=== PATIENT | male | born 1955 | race African-American/Black ===

== ENCOUNTER 2019-07-27 14:02 | Inpatient (IN) ==
[2019-07-27] MEDS ORDERED: TORADOL 30 MG VIAL IVP ONE (15:26)
--- NOTE | 2019-07-27 15:37 | DR.ABDMALE ---
HPI Time seen Time Seen by Provider: 07/27/19 15:29 PCP Primary Care Physician: DR BEE Complaint Chief Complaint Doctors Comments: A 64 y/o male c/o 3 weeks of upper abdominal pain described as sharp in nature. It is not radiating and worsens with meals. He has no nausea or vomiting. He has seen his PCP last Thursday and she thought it may be Pancreatitis. The pain worsened in the past 2 days. Chief Complaint:: PT C/O TWO WEEKS OF CONSTANT SHARP STABBING EPIGASTRIC PAIN THAT HAS WORSENED OVER PAST TWO DAYS. PAIN IS ASSOCITAED WITH NAUSEA BUT NO VOMITING. PAIN IS WORSENED WITH EATING. Reviewed Nurses Notes Review: Yes Mode of arrival Mode of Arrival: Ambulatory Timing Onset of Chief Complaint: 07/27/19 Came on: Gradually Duration Duration: Intermittent How lon Duration: Weeks Location Location: RUQ and Epigastric Severity Severity: Mild and Moderate Quality Quality: Sharp Context Onset: Gradually History of: None Modifying factors Worsening Factors: Food Improving Factors: Nothing Associated signs and symptoms Associated Signs and Symptoms: None PMH PMH Past Medical History: Yes Past Medical History: Arthritis, Coronary Artery Disease, Dyslipidemia, Hypertension and Renal Disease Past Surgical History: Yes Surgical History: CABG/Valve Surgery and Ortho Surgery Family History History of Family Medical Conditions: Yes Family Medical History: Diabetes Mellitus, Cancer, [place] and Coronary Artery Disease Social History Does patient currently use any type of tobacco product: No Have you used tobacco products in the last 12 months: No Type of Tobacco Use: None Does any household member use tobacco: No Alcohol Use: None Do you use any recreational Drugs:: No Lives With: Alone Lives Where: Home infectious screening In the last 2 months have you had wt loss of >10#?: NO Have you had fever, night sweats or hemotysis?: No Have you traveled outside the country in the last 6 months?: No Isolation: Standard ROS Review of Systems Constitutional: No Symptoms Reported Eyes: No Symptoms Reported ENTM: No Symptoms Reported Respiratoy: No Symptoms Reported Cardiovascular: No Symptoms Reported Gastrointestinal/Abdominal: Abdominal Pain (epigastric pain) Genitourinary: No Symptoms Reported Neurological: No Symptoms Reported Musculoskeletal: No Symptoms Reported Integumentary: No Symptoms Reported Hematologic/Lymphatic: No Symptoms Reported Psychiatric: No Symptoms Reported PE Vital Signs Vital Signs: Temp Pulse Resp BP BP Pulse Ox 07/27/19 17:28 20 100 07/27/19 17:17 20 07/27/19 16:48 20 07/27/19 14:05 97.9 F 112 H 20 140/97 96 07/03/19 23:24 123/82 123/82 General Limitations: No Limitations General Appearance: Alert and In No Apparent Distress Head Head Exam: Normal Inspection, Atraumatic and Normocephalic Eyes Eye exam: Normal Appearance and EOMI ENT ENT Exam: Normal Exam, Normal Oropharynx and Mucous Membranes Moist Neck Neck Exam: Normal Inspection, Full ROM and Trachea Midline Chest Chest Inspection: Normal Inspection and Symmetric Chest Wall Rise Respiratory Respiratory Exam: Normal Lung Sounds Bilat Cardiovascular Cardiovascular Exam: Regular Rate, Normal Rhythm, Normal Heart Sounds, +S1 and +S2 Abdominal Exam Abdominal Exam: Normal Inspection, Normal Bowel Sounds and Soft Rectal Rectal Exam: Deferred Back Back Exam: Normal Inspection and Full ROM Extremeties Extremities Exam: Normal Inspection and Full ROM Exam: Male: Deferred Neurologic Neurological Exam: Alert and Oriented X3 Psychiatric Psychiatric Exam: Normal Affect and Normal Mood Skin Skin Exam: Dry and Normal Color MDM Differential Diagnosis Differential Diagnosis: Cholcystitis, Cholelethiasis, Esophagitis, Gastritus/PUD, Hernia and Pancreatitis COURSE Reevaluation 1st: Improved Education/Counseling Education/Counseling: Patient, Family, Education and Counseling Educated On: Treatment, Diagnosis, Prognosis and Needs for Follow Up ROR Labs Reviewed Result Diagrams: 07/27/19 15:34 07/27/19 15:34 Laboratory: WBC 10.6 X10^3/uL (3.6-10.0) H 07/27/19 15:34 RBC 5.49 X10^6/uL (4.7-6.0) 07/27/19 15:34 Hgb 17.4 g/dL (13.5-18.0) 07/27/19 15:34 Hct 53.4 % (42.0-54.0) 07/27/19 15:34 MCV 97.3 fL (80.0-100.0) 07/27/19 15:34 MCH 31.8 pg (27.0-34.0) 07/27/19 15:34 MCHC 32.7 g/dL (33.0-35.0) L 07/27/19 15:34 RDW 14.0 % (11.6-16.5) 07/27/19 15:34 Plt Count 197 X10^3/uL (150.0-450.0) 07/27/19 15:34 MPV 10.4 fL (7.4-11.0) 07/27/19 15:34 Neut % (Auto) 88.0 % (42.0-75.0) H 07/27/19 15:34 Lymph % (Auto) 5.7 % (21.0-51.0) L 07/27/19 15:34 [place] % (Auto) 5.6 % (0.0-13.0) 07/27/19 15:34 Eos % (Auto) 0.1 % (0.9-2.9) L 07/27/19 15:34 Baso % (Auto) 0.6 % (0.2-1.0) 07/27/19 15:34 Neut # (Auto) 9.3 x10^3/uL (2.2-4.8) H 07/27/19 15:34 Lymph # (Auto) 0.6 X10^3/uL (1.3-2.9) L 07/27/19 15:34 [place] # (Auto) 0.6 x10^3/uL (0.3-0.8) 07/27/19 15:34 Eos # (Auto) 0.0 x10^3/uL (0.0-0.2) 07/27/19 15:34 Baso # (Auto) 0.1 X10^3/uL (0.0-0.1) 07/27/19 15:34 Absolute Nucleated RBC 0.0 /100WBC 07/27/19 15:34 Sodium 126 mmol/L (136-145) L 07/27/19 15:34 Corrected Sodium 144 mmol/L (136-145) 07/27/19 15:34 Potassium 6.0 mmol/L (3.5-5.1) H* 07/27/19 15:34 Chloride 87 mmol/L (98-107) L 07/27/19 15:34 Carbon Dioxide 21.5 mmol/L (21-32) 07/27/19 15:34 BUN 46 mg/dL (7-18) H 07/27/19 15:34 Creatinine 3.00 mg/dL (0.70-1.30) H 07/27/19 15:34 Est GFR (MDRD) Af Amer 27 (>60) L 07/27/19 15:34 Est GFR (MDRD) Non-Af 23 (>60) L 07/27/19 15:34 Glucose 854 mg/dL (65-99) H* 07/27/19 15:34 Hemoglobin A1c 9.8 % 07/27/19 15:34 Calcium 10.1 mg/dL (8.5-10.1) 07/27/19 15:34 Corrected Calcium TNP 07/27/19 15:34 Total Bilirubin 0.70 mg/dL (0.2-1.0) 07/27/19 15:34 AST 30 Units/L (15-37) 07/27/19 15:34 ALT 36 Units/L (12-78) 07/27/19 15:34 Alkaline Phosphatase 254 Units/L (46-116) H 07/27/19 15:34 Total Protein 9.1 g/dL (6.4-8.2) H 07/27/19 15:34 Albumin 4.3 g/dL (3.4-5.0) 07/27/19 15:34 Globulin 4.8 g/dL (2.5-4.5) H 07/27/19 15:34 Albumin/Globulin Ratio 0.9 Ratio (1.1-2.1) L 07/27/19 15:34 Amylase 476 Units/L (25-115) H 07/27/19 15:34 Lipase 8589 Units/L (73-393) H 07/27/19 15:34 Urine Acetone Small (NEGATIVE) 07/27/19 17:16 Other Results Comments: CT Abd./Pelvis w/o: Acute pancreatitis. Severe fatty infiltration of an enlarged liver. sigmoid diverticulosis. Opioid Opioid Risk Tool Total: 0 Total Score Risk Category: Low Risk Copyright: Ta CHAVEZ predicting aberrant behaviors Diagnosis Discharge Problem: Acute hyperkalemia, Acute hyponatremia, CKD (chronic kidney disease) stage 4, GFR 15-29 ml/min Acute pancreatitis Qualifiers: Pancreatitis type: other Acute pancreatitis complication: no infection or necrosis Qualified Code(s): K85.80 - Other acute pancreatitis without necrosis or infection Diabetes type 1, uncontrolled Qualifiers: Glycemic state: with hyperglycemia Qualified Code(s): E10.65 - Type 1 diabetes mellitus with hyperglycemia
[2019-07-27 15:42] LABS: BASOPHILS # (AUTO) 0.1 X10^3/uL (0.0-0.1); BASOPHILS % (AUTO) 0.6 % (0.2-1.0); EOSINOPHILS % (AUTO) 0.1 % (0.9-2.9); HEMATOCRIT 53.4 % (42.0-54.0); HEMOGLOBIN 17.4 g/dL (13.5-18.0); LYMPHOCYTES # (AUTO) 0.6 X10^3/uL (1.3-2.9); LYMPHOCYTES % (AUTO) 5.7 % (21.0-51.0); MEAN CORPUSCULAR HEMOGLOBIN 31.8 pg (27.0-34.0); MEAN CORPUSCULAR HGB CONC 32.7 g/dL (33.0-35.0); MEAN CORPUSCULAR VOLUME 97.3 fL (80.0-100.0); MEAN PLATELET VOLUME 10.4 fL (7.4-11.0); MONOCYTES # (AUTO) 0.6 x10^3/uL (0.3-0.8); MONOCYTES % (AUTO) 5.6 % (0.0-13.0); NEUTROPHILS # (AUTO) 9.3 x10^3/uL (2.2-4.8); PLATELET COUNT 197 X10^3/uL (150.0-450.0); RED BLOOD COUNT 5.49 X10^6/uL (4.7-6.0); WHITE BLOOD COUNT 10.6 X10^3/uL (3.6-10.0)
[2019-07-27 15:53] LABS: BLOOD UREA NITROGEN 46 mg/dL (7-18); CALCIUM 10.1 mg/dL (8.5-10.1); CARBON DIOXIDE 21.5 mmol/L (21-32); CHLORIDE 87 mmol/L (98-107); SODIUM 126 mmol/L (136-145); eGFR NON BLACK RACES 23 (>60)
[2019-07-27 15:56] LABS: ALANINE AMINOTRANSFERASE 36 Units/L (12-78); ALBUMIN 4.3 g/dL (3.4-5.0); ALKALINE PHOSPHATASE 254 Units/L (46-116); AMYLASE 476 Units/L (25-115); ASPARTATE AMINO TRANSFERASE 30 Units/L (15-37); TOTAL PROTEIN 9.1 g/dL (6.4-8.2)
[2019-07-27 16:12] LABS: COR NA(FOR HYPERGLY) 144 mmol/L (136-145)
[2019-07-27] MEDS ORDERED: KAYEXALATE SUSP PO ONE (16:16)
[2019-07-27] MEDS ORDERED: NS 1000 ML 1,000 ML IV ONE (16:16)
[2019-07-27] MEDS ORDERED: HumuLIN R IV ONE (16:21)
[2019-07-27] MEDS ORDERED: SODIUM BICARBONATE 8.4% INJ ADULT IVP ONE (16:23)
[2019-07-27] MEDS ORDERED: SODIUM BICARBONATE 8.4% INJ ADULT ONE (16:27)
[2019-07-27] MEDS ORDERED: NS 1000 ML 1,000 ML ONE (16:27)
[2019-07-27 16:28] LABS: LIPASE 8589 Units/L (73-393)
[2019-07-27] MEDS ORDERED: HumuLIN R ONE (16:29)
--- NOTE | 2019-07-27 16:32 | RAD ---
History: Abdominal pain Study: Acute abdominal series Comparison: April 02, 2015 Findings: There is unchanged cardiomegaly status post CABG. The lungs are clear. There is no edema or effusion. The bowel gas pattern is within normal limits. There is a partially visualized right hip prosthesis. There is no free air or fluid level. There are severe degenerative osteophytes about the lumbar spine disc spaces. Impression: Unchanged cardiomegaly 2. No acute disease in the abdomen demonstrated. Reported By:
--- NOTE | 2019-07-27 16:41 | CT ---
History: Abdominal pain Study: CT abdomen and pelvis without contrast. Sagittal and coronal reformations were provided. Dose reduction techniques were utilized. Comparison: April 03, 2015 Findings: There is severe fatty infiltration of the liver and the right lobe measures over 21 cm in length. There is no focal liver mass. The spleen spleen and adrenal glands and kidneys are unremarkable. The head and uncinate process of the pancreas is enlarged and there are stranding of adjacent fat planes and thickening of the anterior right renal fascia. There is no fluid collection. The pancreatic duct is not distended. The gallbladder is unremarkable. There is no biliary dilatation demonstrated. There is no bowel distention or site. There is a small fat containing umbilical hernia. There is no aneurysm or adenopathy evident. There is sigmoid diverticulosis without inflammation. There is artifact from a right hip prosthesis. There are degenerative changes in the lower lumbar spine. Impression: 1. Acute pancreatitis of the uncinate process of the pancreas and head of the pancreas 2. Severe fatty infiltration of an enlarged liver 3. Sigmoid diverticulosis Reported By:
[2019-07-27] MEDS ORDERED: LEVSIN/MAALOX/LIDOC VISC PO ONE (16:47)
[2019-07-27] MEDS ORDERED: LEVSIN/MAALOX/LIDOC VISC ONE (16:47)
[2019-07-27] MEDS ORDERED: DILAUDID INJ IVP ONE (17:13)
[2019-07-27] MEDS ORDERED: DILAUDID INJ ONE (17:14)
[2019-07-27] MEDS ORDERED: PHENERGAN INJ 25 MG IM PRN (18:01)
[2019-07-27] MEDS: NS 1000 ML 1,000 ML IV SCH (19:29)
[2019-07-27] MEDS ORDERED: NexIUM PO SCH (20:00)
[2019-07-27] MEDS: LOPRESSOR TAB 25 MG PO SCH (20:53)
[2019-07-27] MEDS: HYTRIN PO SCH (20:53)
[2019-07-27] MEDS: LIPITOR TAB 40 MG PO SCH (20:53)
[2019-07-27] MEDS: REQUIP PO SCH (20:54)
[2019-07-27] MEDS: KLONOPIN TAB 0.5 MG PO PRN (20:54)
[2019-07-27] MEDS: NORVASC TAB 10 MG PO SCH (20:54)
[2019-07-27 21:16] LABS: CALCIUM 9.1 mg/dL (8.5-10.1); CARBON DIOXIDE 21.1 mmol/L (21-32); CREATININE 2.66 mg/dL (0.70-1.30)
[2019-07-27] MEDS: HumuLIN R SC PRN (21:30)
[2019-07-28] MEDS: DILAUDID INJ IVP PRN ×4 (01:23→20:29)
[2019-07-28] MEDS: NS 1000 ML 1,000 ML IV SCH ×5 (01:29→20:30)
[2019-07-28] MEDS: HumuLIN R SC PRN ×2 (02:07→08:24)
[2019-07-28 06:08] LABS: BASOPHILS % (AUTO) 0.3 % (0.2-1.0); EOSINOPHILS % (AUTO) 0.3 % (0.9-2.9); HEMATOCRIT 50.8 % (42.0-54.0); HEMOGLOBIN 16.9 g/dL (13.5-18.0); LYMPHOCYTES # (AUTO) 0.8 X10^3/uL (1.3-2.9); LYMPHOCYTES % (AUTO) 6.8 % (21.0-51.0); MEAN CORPUSCULAR HEMOGLOBIN 31.4 pg (27.0-34.0); MEAN CORPUSCULAR HGB CONC 33.3 g/dL (33.0-35.0); MEAN CORPUSCULAR VOLUME 94.4 fL (80.0-100.0); MEAN PLATELET VOLUME 10.7 fL (7.4-11.0); MONOCYTES # (AUTO) 0.9 x10^3/uL (0.3-0.8); MONOCYTES % (AUTO) 7.8 % (0.0-13.0); NEUTROPHILS # (AUTO) 9.4 x10^3/uL (2.2-4.8); NEUTROPHILS % (AUTO) 84.8 % (42.0-75.0); PLATELET COUNT 182 X10^3/uL (150.0-450.0); RED BLOOD COUNT 5.38 X10^6/uL (4.7-6.0); RED CELL DISTRIBUTION WIDTH 13.7 % (11.6-16.5); WHITE BLOOD COUNT 11.1 X10^3/uL (3.6-10.0)
[2019-07-28 07:09] LABS: ALBUMIN 3.5 g/dL (3.4-5.0); TOTAL PROTEIN 7.7 g/dL (6.4-8.2)
[2019-07-28 07:16] LABS: CHLORIDE 101 mmol/L (98-107)
[2019-07-28 07:57] LABS: BLOOD UREA NITROGEN 43 mg/dL (7-18); CARBON DIOXIDE 21.9 mmol/L (21-32); COR NA(FOR HYPERGLY) 146 mmol/L (136-145); CREATININE 2.39 mg/dL (0.70-1.30); SODIUM 136 mmol/L (136-145); eGFR NON BLACK RACES 29 (>60)
[2019-07-28 07:59] LABS: ALANINE AMINOTRANSFERASE 30 Units/L (12-78); ALKALINE PHOSPHATASE 204 Units/L (46-116); ASPARTATE AMINO TRANSFERASE 24 Units/L (15-37)
[2019-07-28 08:00] LABS: AMYLASE 982 Units/L (25-115); LIPASE 14861 Units/L (73-393)
[2019-07-28] MEDS ORDERED: AFLURIA II4 or FLUARIX II4 IM ONE (09:39)
[2019-07-28] MEDS: LOPRESSOR TAB 25 MG PO SCH ×2 (09:41→20:24)
[2019-07-28] MEDS: FERROUS GLUCONATE PO SCH (09:42)
[2019-07-28] MEDS: ULORIC PO SCH (09:44)
[2019-07-28 10:39] LABS: CHOL/HDL RATIO 4.3 (0.0-5.0)
[2019-07-28] MEDS ORDERED: NS 100 ML IV 100 ML IV ONE (10:48)
--- NOTE | 2019-07-28 10:52 | DR.H&P ---
H&P - History & Physical for Day of: H&P Date: 07/27/19 - Chief Complaint Chief Complaint: ABDOMINAL PAIN - History of Present Illness History of Present Illness: IS A 64 YEAR OLD PATIENT OF OURS WHO PRESENTED TO THE ER WITH COMPLAITNS OF SEVERE ABDOMINAL PAIN. PAIN STARTED APPROXIMATELY TWO WEEKS AGO AND HAS PROGRESSIVELY GOTTEN WORSE. IT IS DESCRIBED RUQ AND EPIGASTRIC, SHARP/STABBING. PAIN IS ASSOCIATED WITH NAUSEA AND IS WORSE AFTER EATING. ON ARRIVAL, VITALS WERE 97.9-112-20-96%-140/97. LABS WERE OBTAINED. ABNORMAL LAB VALUES INCLUDE THE FOLLOWING: WBC 10.6, INR 1.46, SODIUM 126, POTASSIUM 6.0, CHLORIDE 87, BUN 46, CREATININE 3.00, GLUCOSE 854, ALK PHOS 254, TOTAL PROTEIN 9.0, GLOBULIN 4.8, AMYLASE 476, LIPASE 8589, ACETONES SMALL. AN ABDOMEN XRAY WAS OBTAINED AND REVEALED: UNCHANGED CARDIOMEGALY, NO ACUTE DISEASE IN THE ABDOMEN DEMONSTRATED. AN ABDOMEN/PELVIS CT WAS OBTAINED AND REVEALED: Acute pancreatitis of the uncinate process of the pancreas and head of the pancreas. Severe fatty infiltration of an enlarged liver. Sigmoid diverticulosis. HE WAS GIVEN DILAUDID 2MG IV X 1, GI COCKTAIL 30ML PO X 1, SODIUM BICARB 50ML IV X 1, HUMULIN R 10 UNITS IV X 1, KAYEXALATE 15ML PO X 1, TORADOL 30MG IV X 1, AND A NORMAL SALINE BOLUS. AT 20:55, A BNP REVEALED: SODIUM 133, POTASSIUM 4.4, CHLORIDE 96, BUN 42, CREATININE 2.66, GLUCOSE 665, CALCIUM 9.1. WE ADMITTED PATIENT TO THE INTENSIVE CARE UNIT FOR FURTHER EVALUATION AND TREATMENT OF ACUTE PANCREATITIS, HYPERKALEMIA, HYPERGLYCEMIA, AND CHRONIC KIDNEY DISEASE. HE WAS STARTED ON NORMAL SALINE AT 150ML/HR, HUMULIN R SLIDING SCALE, DILAUDID 2MG IV Q4H PRN PAIN, AND HOME MEDICATIONS WERE RESUMED. WE WILL FOLLOW UP WITH AM LABS AND CONTINUE TO MONITOR. - Past Medical History Past Medical History: Coronary Artery Disease, Hypertension, Dyslipidemia, Renal Disease, Arthritis - Past Surgical History Surgical History: CABG/Valve Surgery, Ortho Surgery - Family History Family Medical History: Diabetes Mellitus, Cancer, Coronary Artery Disease - Social History Does patient currently use any type of tobacco product: No Have you used tobacco products in the last 12 months: No Type of Tobacco Use: None Does any household member use tobacco: No Alcohol Use: None Drug Use: None Prescription drug monitoring program results: PDMP was not reviewed - Medications Home Medications: ibuprofen Allergy (Verified 07/03/19 21:21) dye with iodine Adverse Reaction (Uncoded 04/03/15 16:23) heart cath dye Adverse Reaction (Uncoded 04/03/15 16:23) CONTINUE taking the following medications amlodipine 10 mg PO HS 07/27/19 [History] atorvastatin 40 mg PO HS 07/27/19 [History] cetirizine 10 mg PO DAILY 07/27/19 [History] clonazepam 0.5 mg PO HS PRN 07/27/19 [History] febuxostat [Uloric] 80 mg PO DAILY 07/27/19 [History] hydrochlorothiazide 12.5 mg PO DAILY 07/27/19 [History] metoprolol tartrate 25 mg PO BID 07/27/19 [History] mirabegron [Myrbetriq] 25 mg PO DAILY 07/27/19 [History] ropinirole 2 - 3 mg PO HS 07/27/19 [History] tizanidine 4 mg PO TID 07/27/19 [History] - Review of Systems Constitutional: See HPI, Weakness Eyes: No Symptoms Reported ENT: No Symptoms Reported Respiratory: Shortness of Breath Cardiovascular: Light Headedness Gastrointestinal: Nausea, Abdominal Pain. denies: Vomiting Genitourinary: No Symptoms Reported Musculoskeletal: No Symptoms Reported Skin: No Symptoms Reported Neurological: Weakness - Physical Exam Vital Signs: Temperature 97.4 F Pulse Rate [Apical] 106 Pulse Rate 99 Respiratory Rate 16 Blood Pressure [Right Arm] 133/90 Blood Pressure [Left Arm] 123/82 Blood Pressure 118/89 O2 Sat by Pulse Oximetry 94 Oriented: Normal Eyes: Normal Ear: Normal Nose: Normal Throat: Normal Respiratory: Diminished Throughout Cardiovascular: Tachycardia. negative: S3, S4, Murmur : Normal Auscultation: Bowel Sounds: Normal Palpation: Normal Tenderness: Diffuse, Epigastric, Moderate. negative: Rebound, Guarding, Rigidity Skin: Normal Musculoskeletal: Normal Psychiatric: Normal Mood Description: Calm Affect: Normal Speech Pattern: Clear - Assessment/Plan (1) Acute pancreatitis Qualifiers: Pancreatitis type: other Acute pancreatitis complication: no infection or necrosis Qualified Code(s): K85.80 - Other acute pancreatitis without necrosis or infection Status: Acute Plan: ADMIT, IV FLUIDS, DILAUDID FOR PAIN CONTROL, ZOFRAN IV PRN, CONTINUE TO MONITOR (2) Diabetes type 1, uncontrolled Qualifiers: Glycemic state: with hyperglycemia Qualified Code(s): E10.65 - Type 1 diabetes mellitus with hyperglycemia Status: Acute Plan: HUMULIN R SLIDING SCALE, MONITOR OTBS ACHS (3) CKD (chronic kidney disease) stage 4, GFR 15-29 ml/min Status: Acute Plan: NORMAL SALINE AT 150ML/HR, CONTINUE TO MONITOR (4) Acute hyperkalemia Status: Acute Plan: CONTINUE TO MONITOR (5) Acute hyponatremia Status: Acute Plan: NORMAL SALINE AT 150ML/HR, CONTINUE TO MONITOR - Allergies Allergies/Adverse Reactions: Allergies Allergy/AdvReac Type Severity Reaction Status Date / Time ibuprofen Allergy Verified 07/03/19 21:21 dye with iodine AdvReac Uncoded 04/03/15 16:23 heart cath dye AdvReac Uncoded 04/03/15 16:23
[2019-07-28] MEDS ORDERED: ZOFRAN INJ 4 MG VIAL IVP PRN (10:53)
[2019-07-28 10:56] VITALS: BMI 32.3
[2019-07-28] MEDS: PATIENT'S HOME MEDICATION (Mirabegron [Myrbetriq] 25 MG) PO SCH (11:12)
[2019-07-28] MEDS: SNACK - Diabetic Appropriate PO SCH ×2 (20:21→20:29)
[2019-07-28] MEDS: REQUIP PO SCH (20:21)
[2019-07-28] MEDS: HYTRIN PO SCH (20:22)
[2019-07-28] MEDS: LIPITOR TAB 40 MG PO SCH (20:22)
[2019-07-28] MEDS: NORVASC TAB 10 MG PO SCH (20:25)
[2019-07-29] MEDS: NS 1000 ML 1,000 ML IV SCH ×3 (03:08→11:04)
[2019-07-29 06:24] LABS: BASOPHILS # (AUTO) 0.1 X10^3/uL (0.0-0.1); BASOPHILS % (AUTO) 0.8 % (0.2-1.0); EOSINOPHILS # (AUTO) 0.1 x10^3/uL (0.0-0.2); EOSINOPHILS % (AUTO) 0.9 % (0.9-2.9); HEMOGLOBIN 15.3 g/dL (13.5-18.0); LYMPHOCYTES # (AUTO) 0.6 X10^3/uL (1.3-2.9); LYMPHOCYTES % (AUTO) 5.6 % (21.0-51.0); MEAN CORPUSCULAR HEMOGLOBIN 31.2 pg (27.0-34.0); MEAN CORPUSCULAR HGB CONC 33.2 g/dL (33.0-35.0); MEAN CORPUSCULAR VOLUME 94.2 fL (80.0-100.0); MEAN PLATELET VOLUME 10.2 fL (7.4-11.0); MONOCYTES # (AUTO) 0.8 x10^3/uL (0.3-0.8); MONOCYTES % (AUTO) 7.5 % (0.0-13.0); NEUTROPHILS # (AUTO) 9.5 x10^3/uL (2.2-4.8); NEUTROPHILS % (AUTO) 85.2 % (42.0-75.0); PLATELET COUNT 134 X10^3/uL (150.0-450.0); RED BLOOD COUNT 4.89 X10^6/uL (4.7-6.0); RED CELL DISTRIBUTION WIDTH 13.8 % (11.6-16.5); WHITE BLOOD COUNT 11.1 X10^3/uL (3.6-10.0)
[2019-07-29 06:37] LABS: ALBUMIN 2.9 g/dL (3.4-5.0); CALCIUM 8.8 mg/dL (8.5-10.1); CARBON DIOXIDE 22.5 mmol/L (21-32); COR CA(FOR HYPOALB) 9.7 mg/dL (8.5-10.1); CREATININE 1.75 mg/dL (0.70-1.30); TOTAL PROTEIN 6.8 g/dL (6.4-8.2)
[2019-07-29] MEDS: FERROUS GLUCONATE PO SCH (08:44)
[2019-07-29] MEDS: ULORIC PO SCH (08:45)
[2019-07-29] MEDS: LOPRESSOR TAB 25 MG PO SCH ×2 (08:45→20:51)
[2019-07-29] MEDS: MILK OF MAGNESIA PO SCH ×2 (08:48→20:49)
[2019-07-29] MEDS: PATIENT'S HOME MEDICATION (Mirabegron [Myrbetriq] 25 MG) PO SCH (08:52)
[2019-07-29] MEDS: DILAUDID INJ IVP PRN ×2 (10:23→20:56)
[2019-07-29] MEDS ORDERED: LEVEMIR SC ONE (11:30)
[2019-07-29] MEDS: LEVEMIR SC SCH ×2 (11:55→20:51)
[2019-07-29] MEDS ORDERED: NS 1/2 1000 ML IV 1,000 ML IV ONE (14:27)
[2019-07-29] MEDS: NS 1/2 1000 ML IV 1,000 ML IV SCH (14:34)
[2019-07-29] MEDS: HumuLIN R SC PRN ×2 (17:04→20:52)
[2019-07-29] MEDS: SNACK - Diabetic Appropriate PO SCH (20:00)
[2019-07-29] MEDS: NORVASC TAB 10 MG PO SCH (20:50)
[2019-07-29] MEDS: HYTRIN PO SCH (20:50)
[2019-07-29] MEDS: COLACE CAP 100 MG PO SCH (20:50)
[2019-07-29] MEDS: REQUIP PO SCH (20:50)
[2019-07-29] MEDS: LIPITOR TAB 40 MG PO SCH (20:51)
[2019-07-30] MEDS ORDERED: NS 1/2 1000 ML IV 1,000 ML IV ONE ×2 (00:34→11:16)
[2019-07-30] MEDS: NS 1/2 1000 ML IV 1,000 ML IV SCH ×3 (00:36→12:05)
[2019-07-30 05:28] LABS: BASOPHILS % (AUTO) 0.6 % (0.2-1.0); EOSINOPHILS # (AUTO) 0.2 x10^3/uL (0.0-0.2); EOSINOPHILS % (AUTO) 2.3 % (0.9-2.9); HEMATOCRIT 42.5 % (42.0-54.0); LYMPHOCYTES # (AUTO) 0.8 X10^3/uL (1.3-2.9); LYMPHOCYTES % (AUTO) 9.6 % (21.0-51.0); MEAN CORPUSCULAR HEMOGLOBIN 31.2 pg (27.0-34.0); MEAN CORPUSCULAR HGB CONC 33.1 g/dL (33.0-35.0); MEAN CORPUSCULAR VOLUME 94.4 fL (80.0-100.0); MEAN PLATELET VOLUME 10.9 fL (7.4-11.0); MONOCYTES # (AUTO) 0.7 x10^3/uL (0.3-0.8); MONOCYTES % (AUTO) 8.6 % (0.0-13.0); NEUTROPHILS # (AUTO) 6.7 x10^3/uL (2.2-4.8); NEUTROPHILS % (AUTO) 78.9 % (42.0-75.0); PLATELET COUNT 117 X10^3/uL (150.0-450.0); RED CELL DISTRIBUTION WIDTH 14.2 % (11.6-16.5); WHITE BLOOD COUNT 8.4 X10^3/uL (3.6-10.0)
[2019-07-30 05:52] LABS: ALBUMIN 2.6 g/dL (3.4-5.0); CALCIUM 8.7 mg/dL (8.5-10.1); CARBON DIOXIDE 24.2 mmol/L (21-32); COR CA(FOR HYPOALB) 9.8 mg/dL (8.5-10.1); CREATININE 1.56 mg/dL (0.70-1.30); TOTAL PROTEIN 6.4 g/dL (6.4-8.2)
[2019-07-30] MEDS: HumuLIN R SC PRN ×4 (05:54→20:37)
[2019-07-30] MEDS: LOPRESSOR TAB 25 MG PO SCH ×2 (08:32→20:36)
[2019-07-30] MEDS: ULORIC PO SCH (08:32)
[2019-07-30] MEDS: MILK OF MAGNESIA PO SCH ×3 (08:32→20:39)
[2019-07-30] MEDS: FERROUS GLUCONATE PO SCH (08:32)
[2019-07-30] MEDS: LEVEMIR SC SCH ×2 (08:32→20:38)
[2019-07-30] MEDS: PATIENT'S HOME MEDICATION (Mirabegron [Myrbetriq] 25 MG) PO SCH (08:33)
[2019-07-30] MEDS ORDERED: LR 1000 ML IV 1,000 ML IV ONE (10:37)
[2019-07-30] MEDS: NS 1000 ML 1,000 ML IV SCH ×2 (12:12→18:08)
[2019-07-30] MEDS: ACTOS PO SCH (12:12)
[2019-07-30] MEDS: GLUCOPHAGE XR PO SCH ×2 (12:15→20:37)
[2019-07-30] MEDS: DILAUDID INJ IVP PRN ×2 (12:26→20:39)
[2019-07-30] MEDS: SNACK - Diabetic Appropriate PO SCH (19:35)
[2019-07-30] MEDS: HYTRIN PO SCH (20:36)
[2019-07-30] MEDS: COLACE CAP 100 MG PO SCH (20:36)
[2019-07-30] MEDS: REQUIP PO SCH (20:37)
[2019-07-30] MEDS: LIPITOR TAB 40 MG PO SCH (20:37)
[2019-07-30] MEDS: NORVASC TAB 10 MG PO SCH (20:37)
[2019-07-30] MEDS: KLONOPIN TAB 0.5 MG PO PRN (23:04)
[2019-07-31] MEDS: NS 1000 ML 1,000 ML IV SCH ×3 (02:45→21:55)
[2019-07-31 05:20] LABS: BASOPHILS # (AUTO) 0.1 X10^3/uL (0.0-0.1); BASOPHILS % (AUTO) 1.3 % (0.2-1.0); EOSINOPHILS # (AUTO) 0.2 x10^3/uL (0.0-0.2); EOSINOPHILS % (AUTO) 2.7 % (0.9-2.9); HEMATOCRIT 37.9 % (42.0-54.0); HEMOGLOBIN 12.5 g/dL (13.5-18.0); LYMPHOCYTES # (AUTO) 0.7 X10^3/uL (1.3-2.9); LYMPHOCYTES % (AUTO) 10.5 % (21.0-51.0); MEAN CORPUSCULAR HEMOGLOBIN 31.4 pg (27.0-34.0); MEAN CORPUSCULAR HGB CONC 33.1 g/dL (33.0-35.0); MEAN CORPUSCULAR VOLUME 94.7 fL (80.0-100.0); MEAN PLATELET VOLUME 10.7 fL (7.4-11.0); MONOCYTES # (AUTO) 0.6 x10^3/uL (0.3-0.8); MONOCYTES % (AUTO) 8.8 % (0.0-13.0); NEUTROPHILS # (AUTO) 5.3 x10^3/uL (2.2-4.8); NEUTROPHILS % (AUTO) 76.7 % (42.0-75.0); PLATELET COUNT 139 X10^3/uL (150.0-450.0); WHITE BLOOD COUNT 6.9 X10^3/uL (3.6-10.0)
[2019-07-31 05:40] LABS: ALANINE AMINOTRANSFERASE 22 Units/L (12-78); ALBUMIN 2.4 g/dL (3.4-5.0); ALKALINE PHOSPHATASE 131 Units/L (46-116); AMYLASE 292 Units/L (25-115); ASPARTATE AMINO TRANSFERASE 35 Units/L (15-37); BLOOD UREA NITROGEN 21 mg/dL (7-18); CALCIUM 8.3 mg/dL (8.5-10.1); CARBON DIOXIDE 23.8 mmol/L (21-32); CHLORIDE 113 mmol/L (98-107); COR CA(FOR HYPOALB) 9.6 mg/dL (8.5-10.1); COR NA(FOR HYPERGLY) 148 mmol/L (136-145); CREATININE 1.25 mg/dL (0.70-1.30); SODIUM 146 mmol/L (136-145); TOTAL PROTEIN 6.2 g/dL (6.4-8.2); eGFR NON BLACK RACES > 60 (>60)
[2019-07-31] MEDS: HumuLIN R SC PRN ×4 (05:52→22:16)
[2019-07-31 05:55] LABS: LIPASE 3401 Units/L (73-393)
[2019-07-31] MEDS: ULORIC PO SCH (08:36)
[2019-07-31] MEDS: ACTOS PO SCH (08:37)
[2019-07-31] MEDS: MILK OF MAGNESIA PO SCH ×3 (08:38→22:13)
[2019-07-31] MEDS: FERROUS GLUCONATE PO SCH (08:38)
[2019-07-31] MEDS: LEVEMIR SC SCH ×2 (08:39→22:15)
[2019-07-31] MEDS: GLUCOPHAGE XR PO SCH ×2 (08:41→22:04)
[2019-07-31] MEDS: LOPRESSOR TAB 25 MG PO SCH ×2 (08:42→22:04)
[2019-07-31] MEDS: DILAUDID INJ IVP PRN ×2 (14:29→22:05)
[2019-07-31] MEDS: PATIENT'S HOME MEDICATION (Mirabegron [Myrbetriq] 25 MG) PO SCH (14:30)
--- NOTE | 2019-07-31 19:53 | PCM.PROG ---
Progress Note - Progress Note for Day of Date of Exam: 07/28/19 - Subjective Subjective: WAS ADMITTED FOR ACUTE PANCREATITIS, HYPERKALEMIA, HYPERGLYCEMIA, AND CHRONIC KIDNEY DISEASE. TODAY, HE IS ALERT AND ORIENTED, LYING IN BED ON MORNING ROUNDS. HE CONTINUES WITH COMPLAINTS OF ABDOMINAL PAIN THIS MORNING, BUT REPORTS SLIGHT IMPROVEMENT IN SYMPTOMS SINCE ADMISSION. ON EXAMINATION, HEART IS REGULAR IN RATE AND RHYTHM. BILATERAL LUNGS ARE NOTED WITH DIMINISHED LUNG SOUNDS THROUGHOUT. ABDOMEN IS ROUND, SOFT, AND NOTED WITH RUQ TENDERNESS TO PALPATION. NORMAL BOWEL SOUNDS ARE NOTED IN ALL QUADRNATS. HIS VITALS THIS MORNING ARE: 98.0-102-21-92%-147/93. LABS WERE OBTAINED. ABNORMAL LAB VALUES INCLUDE THE FOLLOWING: WBC 11.1, BUN 43, CREATININE 2.39, GLUCOSE 507, ALK PHOS 204, AMYLASE 982, LIPASE 79734, ACETONES SMALL. HE DENIES KNOWN HISTORY OF DIABETES. HE IS CURRENTLY RECEIVING NORMAL SALINE AT 150ML/HR, HUMULIN R SLIDING SCALE, DILAUDID 2MG IV Q4H PRN PAIN, AND HOME MEDICATIONS WERE RESUMED. TODAY, WE WILL DISCONTINUE SLIDING SCALE INSULIN AND START A HUMULIN R INSULIN DRIP. WE WILL ALSO OBTAIN A FASTING LIPID PANEL. OTHERWISE, WE WILL CONTINUE WITH CURRENT PLAN OF CARE TODAY. WE PLAN TO FOLLOW UP WITH AM LABS AND CONTINUE TO MONITOR. - Past Medical Family Social History Past Med/Fam/Surg Hx: No changes since H&P Allergies: Allergies ibuprofen Allergy (Verified 07/03/19 21:21) dye with iodine Adverse Reaction (Uncoded 04/03/15 16:23) heart cath dye Adverse Reaction (Uncoded 04/03/15 16:23) - Review of Systems ROS: No change since H&P - Vital Signs and I&O's Vital Signs: Temperature 98.2 F Pulse Rate [Apical] 106 Pulse Rate 99 Respiratory Rate 21 Blood Pressure [Right Arm] 133/90 Blood Pressure [Left Arm] 123/82 Blood Pressure 158/91 O2 Sat by Pulse Oximetry 94 Intake and Output: Intake & Output 07/29/19 07/30/19 07/31/19 08/01/19 11:59 11:59 11:59 11:59 Intake Total 2232 / 2232 2966 / 2966 4814 / 4814 2323 / 2323 Output Total 1900 / 1900 850 / 850 2175 / 2175 Balance 332 / 332 2116 / 2116 2639 / 2639 2323 / 2323 - Physical Exam Oriented: Normal Eyes: Normal Ear: Normal Nose: Normal Throat: Normal Respiratory: Generalized, Diminished Cardiovascular: Normal. negative: S3, S4, Murmur : Normal Auscultation: Bowel Sounds: Normal Palpation: Normal Tenderness: Diffuse, Epigastric, Moderate. negative: Rebound, Guarding, Rigidity Skin: Normal Musculoskeletal: Normal Psychiatric: Normal Mood Description: Calm Affect: Normal Speech Pattern: Clear, Appropriate - Laboratory and Diagnostics Result Diagrams: 07/31/19 04:05 07/31/19 04:05 Labs: Laboratory WBC 6.9 X10^3/uL (3.6-10.0) 07/31/19 04:05 RBC 4.00 X10^6/uL (4.7-6.0) L 07/31/19 04:05 Hgb 12.5 g/dL (13.5-18.0) L 07/31/19 04:05 Hct 37.9 % (42.0-54.0) L 07/31/19 04:05 MCV 94.7 fL (80.0-100.0) 07/31/19 04:05 MCH 31.4 pg (27.0-34.0) 07/31/19 04:05 MCHC 33.1 g/dL (33.0-35.0) 07/31/19 04:05 RDW 14.0 % (11.6-16.5) 07/31/19 04:05 Plt Count 139 X10^3/uL (150.0-450.0) L 07/31/19 04:05 MPV 10.7 fL (7.4-11.0) 07/31/19 04:05 Neut % (Auto) 76.7 % (42.0-75.0) H 07/31/19 04:05 Lymph % (Auto) 10.5 % (21.0-51.0) L 07/31/19 04:05 [place] % (Auto) 8.8 % (0.0-13.0) 07/31/19 04:05 Eos % (Auto) 2.7 % (0.9-2.9) 07/31/19 04:05 Baso % (Auto) 1.3 % (0.2-1.0) H 07/31/19 04:05 Neut # (Auto) 5.3 x10^3/uL (2.2-4.8) H 07/31/19 04:05 Lymph # (Auto) 0.7 X10^3/uL (1.3-2.9) L 07/31/19 04:05 [place] # (Auto) 0.6 x10^3/uL (0.3-0.8) 07/31/19 04:05 Eos # (Auto) 0.2 x10^3/uL (0.0-0.2) 07/31/19 04:05 Baso # (Auto) 0.1 X10^3/uL (0.0-0.1) 07/31/19 04:05 Absolute Nucleated RBC 0.1 /100WBC 07/31/19 04:05 PT 17.2 SECONDS (11.8-14.3) 07/27/19 15:34 INR Target Range - 07/27/19 15:34 INR 1.46 (0.8-1.3) H 07/27/19 15:34 APTT 31.2 SECONDS (22.9-36.5) 07/27/19 15:34 PTT Comment - 07/27/19 15:34 Sodium 146 mmol/L (136-145) H 07/31/19 04:05 Corrected Sodium 148 mmol/L (136-145) H 07/31/19 04:05 Potassium 3.8 mmol/L (3.5-5.1) 07/31/19 04:05 Chloride 113 mmol/L (98-107) H 07/31/19 04:05 Carbon Dioxide 23.8 mmol/L (21-32) 07/31/19 04:05 BUN 21 mg/dL (7-18) H 07/31/19 04:05 Creatinine 1.25 mg/dL (0.70-1.30) 07/31/19 04:05 Est GFR (MDRD) Af Amer > 60 (>60) 07/31/19 04:05 Est GFR (MDRD) Non-Af > 60 (>60) 07/31/19 04:05 Glucose 195 mg/dL (65-99) H 07/31/19 04:05 POC Glucose (mg/dL) 197 mg/dL (65-99) H 07/31/19 16:36 Hemoglobin A1c 9.8 % 07/27/19 15:34 Calcium 8.3 mg/dL (8.5-10.1) L 07/31/19 04:05 Corrected Calcium 9.6 mg/dL (8.5-10.1) 07/31/19 04:05 Total Bilirubin 1.70 mg/dL (0.2-1.0) H 07/31/19 04:05 AST 35 Units/L (15-37) 07/31/19 04:05 ALT 22 Units/L (12-78) 07/31/19 04:05 Alkaline Phosphatase 131 Units/L (46-116) H 07/31/19 04:05 Total Protein 6.2 g/dL (6.4-8.2) L 07/31/19 04:05 Albumin 2.4 g/dL (3.4-5.0) L 07/31/19 04:05 Globulin 3.8 g/dL (2.5-4.5) 07/31/19 04:05 Albumin/Globulin Ratio 0.6 Ratio (1.1-2.1) L 07/31/19 04:05 Triglycerides 243 mg/dL (0-150) H 07/28/19 05:05 Cholesterol 214 mg/dL (0-200) H 07/28/19 05:05 LDL Cholesterol, Calc 115 mg/dL (0-100) H 07/28/19 05:05 HDL Cholesterol 50 mg/dL (40-60) 07/28/19 05:05 Cholesterol/HDL Ratio 4.3 (0.0-5.0) 07/28/19 05:05 Amylase 292 Units/L (25-115) H 07/31/19 04:05 Lipase 3401 Units/L (73-393) H 07/31/19 04:05 Urine Acetone Small (NEGATIVE) 07/31/19 05:06 Urine Opiates Screen Positive (NEG=<300) 07/28/19 12:22 Urine Methadone Screen Negative (NEG=<300) 07/28/19 12:22 Ur Barbiturates Screen Negative (NEG=<200) 07/28/19 12:22 Ur Phencyclidine Scrn Negative (NEG=<25) 07/28/19 12:22 Ur Amphetamines Screen Negative (NEG=<1000) 07/28/19 12:22 U Benzodiazepines Scrn Negative (NEG=<200) 07/28/19 12:22 Urine Cocaine Screen Negative (NEG=<300) 07/28/19 12:22 U Marijuana (THC) Screen Negative (NEG=<50) 07/28/19 12:22 Acetone, Semi-Quant Small (NEGATIVE) H 07/28/19 05:05 - Plan (1) Acute pancreatitis Status: Acute Qualifiers: Pancreatitis type: other Acute pancreatitis complication: no infection or necrosis Qualified Code(s): K85.80 - Other acute pancreatitis without necrosis or infection Plan: IV FLUIDS, DILAUDID FOR PAIN CONTROL, ZOFRAN IV PRN, CONTINUE TO MONITOR (2) Diabetes type 1, uncontrolled Status: Acute Qualifiers: Glycemic state: with hyperglycemia Qualified Code(s): E10.65 - Type 1 diabetes mellitus with hyperglycemia Plan: HUMULIN R INSULIN DRIP, MONITOR OTBS Q1H (3) CKD (chronic kidney disease) stage 4, GFR 15-29 ml/min Status: Acute Plan: NORMAL SALINE AT 150ML/HR, CONTINUE TO MONITOR (4) Acute hyperkalemia Status: Acute Plan: CONTINUE TO MONITOR (5) Acute hyponatremia Status: Acute Plan: NORMAL SALINE AT 150ML/HR, CONTINUE TO MONITOR
--- NOTE | 2019-07-31 21:01 | PCM.PROG ---
Progress Note - Progress Note for Day of Date of Exam: 07/29/19 - Subjective Subjective: WAS ADMITTED FOR ACUTE PANCREATITIS, HYPERKALEMIA, HYPERGLYCEMIA, AND CHRONIC KIDNEY DISEASE. TODAY, HE IS ALERT AND ORIENTED, LYING IN BED ON MORNING ROUNDS. HE CONTINUES WITH COMPLAINTS OF ABDOMINAL PAIN THIS MORNING, BUT CONTINUES TO REPORT IMPROVEMENT. ON EXAMINATION, HEART IS REGULAR IN RATE AND RHYTHM. BILATERAL LUNGS ARE NOTED WITH DIMINISHED LUNG SOUNDS THROUGHOUT. ABDOMEN IS ROUND, SOFT, AND NOTED WITH RUQ TENDERNESS TO PALPATION. NORMAL BOWEL SOUNDS ARE NOTED IN ALL QUADRNATS. HIS VITALS THIS MORNING ARE: 98.5-100-14-95%-121/75. LABS WERE OBTAINED. ABNORMAL LAB VALUES INCLUDE THE FOLLOWING: WBC 11.1, SODIUM 148, CHLORIDE 113, BUN 33, CREATININE 1.75, GLUCOSE 232, ALK PHOS 156, ALBUMIN 2.9, AMYLASE 523, LIPASE 5712, ACETONES SMALL. HE DENIES KNOWN HISTORY OF DIABETES. HE IS CURRENTLY RECEIVING NORMAL SALINE AT 150ML/HR, HUMULIN R INSULIN DRIP, DILAUDID 2MG IV Q4H PRN PAIN, AND HOME MEDICATIONS WERE RESUMED. TODAY, WE WILL START LEVEMIR 10 UNITS BID AND WILL DISCONTINUE THE INSULIN DRIP. WE WILL RESTART SLIDING SCALE HUMULIN R. OTHERWISE, WE WILL CONTINUE WITH CURRENT PLAN OF CARE TODAY. WE PLAN TO FOLLOW UP WITH AM LABS AND CONTINUE TO MONITOR. - Past Medical Family Social History Past Med/Fam/Surg Hx: No changes since H&P Allergies: Allergies ibuprofen Allergy (Verified 07/03/19 21:21) dye with iodine Adverse Reaction (Uncoded 04/03/15 16:23) heart cath dye Adverse Reaction (Uncoded 04/03/15 16:23) - Review of Systems ROS: No change since H&P - Vital Signs and I&O's Vital Signs: Temperature 98.2 F Pulse Rate [Apical] 106 Pulse Rate 99 Respiratory Rate 21 Blood Pressure [Right Arm] 133/90 Blood Pressure [Left Arm] 123/82 Blood Pressure 158/91 O2 Sat by Pulse Oximetry 94 Intake and Output: Intake & Output 07/29/19 07/30/19 07/31/19 08/01/19 11:59 11:59 11:59 11:59 Intake Total 2232 / 2232 2966 / 2966 4814 / 4814 2323 / 2323 Output Total 1900 / 1900 850 / 850 2175 / 2175 Balance 332 / 332 2116 / 2116 2639 / 2639 2323 / 2323 - Physical Exam Oriented: Normal Eyes: Normal Ear: Normal Nose: Normal Throat: Normal Respiratory: Generalized, Diminished Cardiovascular: Normal. negative: S3, S4, Murmur : Normal Auscultation: Bowel Sounds: Normal Palpation: Normal Tenderness: Diffuse, Epigastric, Moderate. negative: Rebound, Guarding, Rigidity Skin: Normal Musculoskeletal: Normal Psychiatric: Normal Mood Description: Calm Affect: Normal Speech Pattern: Clear, Appropriate - Laboratory and Diagnostics Result Diagrams: 07/31/19 04:05 07/31/19 04:05 Labs: Laboratory WBC 6.9 X10^3/uL (3.6-10.0) 07/31/19 04:05 RBC 4.00 X10^6/uL (4.7-6.0) L 07/31/19 04:05 Hgb 12.5 g/dL (13.5-18.0) L 07/31/19 04:05 Hct 37.9 % (42.0-54.0) L 07/31/19 04:05 MCV 94.7 fL (80.0-100.0) 07/31/19 04:05 MCH 31.4 pg (27.0-34.0) 07/31/19 04:05 MCHC 33.1 g/dL (33.0-35.0) 07/31/19 04:05 RDW 14.0 % (11.6-16.5) 07/31/19 04:05 Plt Count 139 X10^3/uL (150.0-450.0) L 07/31/19 04:05 MPV 10.7 fL (7.4-11.0) 07/31/19 04:05 Neut % (Auto) 76.7 % (42.0-75.0) H 07/31/19 04:05 Lymph % (Auto) 10.5 % (21.0-51.0) L 07/31/19 04:05 [place] % (Auto) 8.8 % (0.0-13.0) 07/31/19 04:05 Eos % (Auto) 2.7 % (0.9-2.9) 07/31/19 04:05 Baso % (Auto) 1.3 % (0.2-1.0) H 07/31/19 04:05 Neut # (Auto) 5.3 x10^3/uL (2.2-4.8) H 07/31/19 04:05 Lymph # (Auto) 0.7 X10^3/uL (1.3-2.9) L 07/31/19 04:05 [place] # (Auto) 0.6 x10^3/uL (0.3-0.8) 07/31/19 04:05 Eos # (Auto) 0.2 x10^3/uL (0.0-0.2) 07/31/19 04:05 Baso # (Auto) 0.1 X10^3/uL (0.0-0.1) 07/31/19 04:05 Absolute Nucleated RBC 0.1 /100WBC 07/31/19 04:05 PT 17.2 SECONDS (11.8-14.3) 07/27/19 15:34 INR Target Range - 07/27/19 15:34 INR 1.46 (0.8-1.3) H 07/27/19 15:34 APTT 31.2 SECONDS (22.9-36.5) 07/27/19 15:34 PTT Comment - 07/27/19 15:34 Sodium 146 mmol/L (136-145) H 07/31/19 04:05 Corrected Sodium 148 mmol/L (136-145) H 07/31/19 04:05 Potassium 3.8 mmol/L (3.5-5.1) 07/31/19 04:05 Chloride 113 mmol/L (98-107) H 07/31/19 04:05 Carbon Dioxide 23.8 mmol/L (21-32) 07/31/19 04:05 BUN 21 mg/dL (7-18) H 07/31/19 04:05 Creatinine 1.25 mg/dL (0.70-1.30) 07/31/19 04:05 Est GFR (MDRD) Af Amer > 60 (>60) 07/31/19 04:05 Est GFR (MDRD) Non-Af > 60 (>60) 07/31/19 04:05 Glucose 195 mg/dL (65-99) H 07/31/19 04:05 POC Glucose (mg/dL) 210 mg/dL (65-99) H 07/31/19 20:30 Hemoglobin A1c 9.8 % 07/27/19 15:34 Calcium 8.3 mg/dL (8.5-10.1) L 07/31/19 04:05 Corrected Calcium 9.6 mg/dL (8.5-10.1) 07/31/19 04:05 Total Bilirubin 1.70 mg/dL (0.2-1.0) H 07/31/19 04:05 AST 35 Units/L (15-37) 07/31/19 04:05 ALT 22 Units/L (12-78) 07/31/19 04:05 Alkaline Phosphatase 131 Units/L (46-116) H 07/31/19 04:05 Total Protein 6.2 g/dL (6.4-8.2) L 07/31/19 04:05 Albumin 2.4 g/dL (3.4-5.0) L 07/31/19 04:05 Globulin 3.8 g/dL (2.5-4.5) 07/31/19 04:05 Albumin/Globulin Ratio 0.6 Ratio (1.1-2.1) L 07/31/19 04:05 Triglycerides 243 mg/dL (0-150) H 07/28/19 05:05 Cholesterol 214 mg/dL (0-200) H 07/28/19 05:05 LDL Cholesterol, Calc 115 mg/dL (0-100) H 07/28/19 05:05 HDL Cholesterol 50 mg/dL (40-60) 07/28/19 05:05 Cholesterol/HDL Ratio 4.3 (0.0-5.0) 07/28/19 05:05 Amylase 292 Units/L (25-115) H 07/31/19 04:05 Lipase 3401 Units/L (73-393) H 07/31/19 04:05 Urine Acetone Small (NEGATIVE) 07/31/19 05:06 Urine Opiates Screen Positive (NEG=<300) 07/28/19 12:22 Urine Methadone Screen Negative (NEG=<300) 07/28/19 12:22 Ur Barbiturates Screen Negative (NEG=<200) 07/28/19 12:22 Ur Phencyclidine Scrn Negative (NEG=<25) 07/28/19 12:22 Ur Amphetamines Screen Negative (NEG=<1000) 07/28/19 12:22 U Benzodiazepines Scrn Negative (NEG=<200) 07/28/19 12:22 Urine Cocaine Screen Negative (NEG=<300) 07/28/19 12:22 U Marijuana (THC) Screen Negative (NEG=<50) 07/28/19 12:22 Acetone, Semi-Quant Small (NEGATIVE) H 07/28/19 05:05 - Plan (1) Acute pancreatitis Status: Acute Qualifiers: Pancreatitis type: other Acute pancreatitis complication: no infection or necrosis Qualified Code(s): K85.80 - Other acute pancreatitis without necrosis or infection Plan: IV FLUIDS, DILAUDID FOR PAIN CONTROL, ZOFRAN IV PRN, CONTINUE TO MONITOR (2) Diabetes type 1, uncontrolled Status: Acute Qualifiers: Glycemic state: with hyperglycemia Qualified Code(s): E10.65 - Type 1 diabetes mellitus with hyperglycemia Plan: HUMULIN R INSULIN DRIP, MONITOR OTBS Q1H (3) CKD (chronic kidney disease) stage 4, GFR 15-29 ml/min Status: Acute Plan: NORMAL SALINE AT 150ML/HR, CONTINUE TO MONITOR (4) Acute hyperkalemia Status: Acute Plan: CONTINUE TO MONITOR (5) Acute hyponatremia Status: Acute Plan: NORMAL SALINE AT 150ML/HR, CONTINUE TO MONITOR
[2019-07-31] MEDS: COLACE CAP 100 MG PO SCH ×2 (22:03→22:14)
[2019-07-31] MEDS: REQUIP PO SCH (22:03)
[2019-07-31] MEDS: LIPITOR TAB 40 MG PO SCH (22:04)
[2019-07-31] MEDS: NORVASC TAB 10 MG PO SCH (22:04)
[2019-07-31] MEDS: HYTRIN PO SCH (22:04)
[2019-07-31] MEDS: SNACK - Diabetic Appropriate PO SCH (22:13)
[2019-08-01 04:36] LABS: BASOPHILS # (AUTO) 0.1 X10^3/uL (0.0-0.1); BASOPHILS % (AUTO) 1.1 % (0.2-1.0); EOSINOPHILS # (AUTO) 0.1 x10^3/uL (0.0-0.2); EOSINOPHILS % (AUTO) 2.1 % (0.9-2.9); HEMATOCRIT 35.9 % (42.0-54.0); HEMOGLOBIN 11.8 g/dL (13.5-18.0); LYMPHOCYTES % (AUTO) 14.7 % (21.0-51.0); MEAN CORPUSCULAR HEMOGLOBIN 31.6 pg (27.0-34.0); MEAN CORPUSCULAR HGB CONC 32.8 g/dL (33.0-35.0); MEAN CORPUSCULAR VOLUME 96.5 fL (80.0-100.0); MEAN PLATELET VOLUME 10.3 fL (7.4-11.0); MONOCYTES # (AUTO) 0.7 x10^3/uL (0.3-0.8); MONOCYTES % (AUTO) 10.3 % (0.0-13.0); NEUTROPHILS # (AUTO) 4.9 x10^3/uL (2.2-4.8); NEUTROPHILS % (AUTO) 71.8 % (42.0-75.0); PLATELET COUNT 157 X10^3/uL (150.0-450.0); RED BLOOD COUNT 3.72 X10^6/uL (4.7-6.0); RED CELL DISTRIBUTION WIDTH 14.1 % (11.6-16.5); WHITE BLOOD COUNT 6.8 X10^3/uL (3.6-10.0)
[2019-08-01] MEDS: NS 1000 ML 1,000 ML IV SCH (04:45)
[2019-08-01 04:47] LABS: ALANINE AMINOTRANSFERASE 21 Units/L (12-78); ALBUMIN 2.3 g/dL (3.4-5.0); ALKALINE PHOSPHATASE 120 Units/L (46-116); AMYLASE 269 Units/L (25-115); ASPARTATE AMINO TRANSFERASE 37 Units/L (15-37); BLOOD UREA NITROGEN 20 mg/dL (7-18); CALCIUM 8.6 mg/dL (8.5-10.1); CARBON DIOXIDE 21.9 mmol/L (21-32); CHLORIDE 113 mmol/L (98-107); COR NA(FOR HYPERGLY) 147 mmol/L (136-145); CREATININE 1.16 mg/dL (0.70-1.30); SODIUM 145 mmol/L (136-145); TOTAL PROTEIN 5.9 g/dL (6.4-8.2); eGFR NON BLACK RACES > 60 (>60)
[2019-08-01 05:05] LABS: LIPASE 3214 Units/L (73-393)
[2019-08-01] MEDS: FERROUS GLUCONATE PO SCH (09:18)
[2019-08-01] MEDS: LOPRESSOR TAB 25 MG PO SCH ×2 (09:18→21:16)
[2019-08-01] MEDS: PATIENT'S HOME MEDICATION (Mirabegron [Myrbetriq] 25 MG) PO SCH (09:19)
[2019-08-01] MEDS: GLUCOPHAGE XR PO SCH (09:20)
[2019-08-01] MEDS: ACTOS PO SCH (09:20)
[2019-08-01] MEDS: MILK OF MAGNESIA PO SCH ×2 (09:21→21:16)
[2019-08-01] MEDS: LEVEMIR SC SCH ×3 (09:32→21:17)
[2019-08-01] MEDS: ULORIC PO SCH (09:33)
[2019-08-01] MEDS ORDERED: NS 1/2 1000 ML IV 1,000 ML IV ONE ×2 (11:30→18:05)
[2019-08-01] MEDS: NS 1/2 1000 ML IV 1,000 ML IV SCH ×2 (11:33→18:06)
[2019-08-01] MEDS: DILAUDID INJ IVP PRN ×2 (11:33→17:58)
[2019-08-01] MEDS ORDERED: LEVEMIR SC NR (12:00)
[2019-08-01] MEDS ORDERED: MAALOX or MYLANTA PO PRN (13:16)
--- NOTE | 2019-08-01 18:58 | PCM.PROG ---
Progress Note - Progress Note for Day of Date of Exam: 08/01/19 - Subjective Subjective: WAS ADMITTED FOR ACUTE PANCREATITIS, HYPERKALEMIA, HYPERGLYCEMIA, AND CHRONIC KIDNEY DISEASE. HIS AMYLASE AND LIPASE LEVELS HAVE GREATLY DECREASED SINCE ADMISSION. TODAY, HE IS ALERT AND ORIENTED, LYING IN BED ON MORNING ROUNDS. HE CONTINUES WITH COMPLAINTS OF ABDOMINAL PAIN THIS MORNING. HE REPORTS THAT PAIN IS WORSE ABOUT AN HOUR AFTER EATING. ON EXAMINATION, HEART IS REGULAR IN RATE AND RHYTHM. BILATERAL LUNGS ARE NOTED WITH DIMINISHED LUNG SOUNDS THROUGHOUT. ABDOMEN IS ROUND, SOFT, AND NOTED WITH RUQ TENDERNESS TO PALPATION. NORMAL BOWEL SOUNDS ARE NOTED IN ALL QUADRNATS. HIS VITALS THIS MORNING ARE: 98.2-89-16-94%-144/80. LABS WERE OBTAINED. ABNORMAL LAB VALUES INCLUDE THE FOLLOWING: RBC 3.72, HGB 11.8, HCT 35.9, CHLORIDE 113, BUN 20, GLUCOSE 201, TOTAL BILI 2.00, ALK PHOS 120, TOTAL PROTEIN 5.9, ALBUMIN 2.3, AMYLASE 269, LIPASE 3214. HE IS CURRENTLY RECEIVING NORMAL SALINE AT 175ML/HR, LEVEMIR 10 UNITS SC BID, HUMULIN R SLIDING SCALE, DILAUDID 2MG IV Q4H PRN PAIN, PHENERGAN 25MG IM Q4H PRN, AND ZOFRAN 4MG IV Q4H PRN, AND HOME MEDICATIONS WERE RESUMED. METFORMIN AND ACTOS WERE STARTED OVER THE WEEKEND. TODAY, WE WILL INCREASE LEVEMIR TO 15 UNITS BID AND WILL DISCONTINUE THE METFORMIN AND ACTOS. WE WILL CHANGE IV FLUIDS TO 1/2NS AT 100M/HR. OTHERWISE, WE WILL CONTINUE WITH CURRENT PLAN OF CARE TODAY. WE PLAN TO FOLLOW UP WITH AM LABS AND CONTINUE TO MONITOR. - Past Medical Family Social History Past Med/Fam/Surg Hx: No changes since H&P Allergies: Allergies ibuprofen Allergy (Verified 07/03/19 21:21) dye with iodine Adverse Reaction (Uncoded 04/03/15 16:23) heart cath dye Adverse Reaction (Uncoded 04/03/15 16:23) - Review of Systems ROS: No change since H&P - Vital Signs and I&O's Vital Signs: Temperature 98.8 F Pulse Rate [Apical] 106 Pulse Rate 97 Respiratory Rate 15 Blood Pressure [Right Arm] 133/90 Blood Pressure [Left Arm] 123/82 Blood Pressure 126/88 O2 Sat by Pulse Oximetry 98 Intake and Output: Intake & Output 07/30/19 07/31/19 08/01/19 08/02/19 11:59 11:59 11:59 11:59 Intake Total 2966 / 2966 4814 / 4814 4723 / 4723 1400 / 1400 Output Total 850 / 850 2175 / 2175 1800 / 1800 950 / 950 Balance 2116 / 2116 2639 / 2639 2923 / 2923 450 / 450 - Physical Exam Oriented: Normal Eyes: Normal Ear: Normal Nose: Normal Throat: Normal Respiratory: Generalized, Diminished Cardiovascular: Normal. negative: S3, S4, Murmur : Normal Auscultation: Bowel Sounds: Normal Palpation: Normal Tenderness: Diffuse, Epigastric, Moderate. negative: Rebound, Guarding, Rigidity Skin: Normal Musculoskeletal: Normal, Shoulder, Hand Psychiatric: Normal Mood Description: Calm Affect: Normal Speech Pattern: Clear, Appropriate - Laboratory and Diagnostics Result Diagrams: 08/01/19 04:08 08/01/19 04:08 Labs: Laboratory WBC 6.8 X10^3/uL (3.6-10.0) 08/01/19 04:08 RBC 3.72 X10^6/uL (4.7-6.0) L 08/01/19 04:08 Hgb 11.8 g/dL (13.5-18.0) L 08/01/19 04:08 Hct 35.9 % (42.0-54.0) L 08/01/19 04:08 MCV 96.5 fL (80.0-100.0) 08/01/19 04:08 MCH 31.6 pg (27.0-34.0) 08/01/19 04:08 MCHC 32.8 g/dL (33.0-35.0) L 08/01/19 04:08 RDW 14.1 % (11.6-16.5) 08/01/19 04:08 Plt Count 157 X10^3/uL (150.0-450.0) 08/01/19 04:08 MPV 10.3 fL (7.4-11.0) 08/01/19 04:08 Neut % (Auto) 71.8 % (42.0-75.0) 08/01/19 04:08 Lymph % (Auto) 14.7 % (21.0-51.0) L 08/01/19 04:08 [place] % (Auto) 10.3 % (0.0-13.0) 08/01/19 04:08 Eos % (Auto) 2.1 % (0.9-2.9) 08/01/19 04:08 Baso % (Auto) 1.1 % (0.2-1.0) H 08/01/19 04:08 Neut # (Auto) 4.9 x10^3/uL (2.2-4.8) H 08/01/19 04:08 Lymph # (Auto) 1.0 X10^3/uL (1.3-2.9) L 08/01/19 04:08 [place] # (Auto) 0.7 x10^3/uL (0.3-0.8) 08/01/19 04:08 Eos # (Auto) 0.1 x10^3/uL (0.0-0.2) 08/01/19 04:08 Baso # (Auto) 0.1 X10^3/uL (0.0-0.1) 08/01/19 04:08 Absolute Nucleated RBC 0.1 /100WBC 08/01/19 04:08 PT 17.2 SECONDS (11.8-14.3) 07/27/19 15:34 INR Target Range - 07/27/19 15:34 INR 1.46 (0.8-1.3) H 07/27/19 15:34 APTT 31.2 SECONDS (22.9-36.5) 07/27/19 15:34 PTT Comment - 07/27/19 15:34 Sodium 145 mmol/L (136-145) 08/01/19 04:08 Corrected Sodium 147 mmol/L (136-145) H 08/01/19 04:08 Potassium 4.0 mmol/L (3.5-5.1) 08/01/19 04:08 Chloride 113 mmol/L (98-107) H 08/01/19 04:08 Carbon Dioxide 21.9 mmol/L (21-32) 08/01/19 04:08 BUN 20 mg/dL (7-18) H 08/01/19 04:08 Creatinine 1.16 mg/dL (0.70-1.30) 08/01/19 04:08 Est GFR (MDRD) Af Amer > 60 (>60) 08/01/19 04:08 Est GFR (MDRD) Non-Af > 60 (>60) 08/01/19 04:08 Glucose 201 mg/dL (65-99) H 08/01/19 04:08 POC Glucose (mg/dL) 219 mg/dL (65-99) H 08/01/19 11:45 Hemoglobin A1c 9.8 % 07/27/19 15:34 Calcium 8.6 mg/dL (8.5-10.1) 08/01/19 04:08 Corrected Calcium 10.0 mg/dL (8.5-10.1) 08/01/19 04:08 Total Bilirubin 2.00 mg/dL (0.2-1.0) H 08/01/19 04:08 AST 37 Units/L (15-37) 08/01/19 04:08 ALT 21 Units/L (12-78) 08/01/19 04:08 Alkaline Phosphatase 120 Units/L (46-116) H 08/01/19 04:08 Total Protein 5.9 g/dL (6.4-8.2) L 08/01/19 04:08 Albumin 2.3 g/dL (3.4-5.0) L 08/01/19 04:08 Globulin 3.6 g/dL (2.5-4.5) 08/01/19 04:08 Albumin/Globulin Ratio 0.6 Ratio (1.1-2.1) L 08/01/19 04:08 Triglycerides 243 mg/dL (0-150) H 07/28/19 05:05 Cholesterol 214 mg/dL (0-200) H 07/28/19 05:05 LDL Cholesterol, Calc 115 mg/dL (0-100) H 07/28/19 05:05 HDL Cholesterol 50 mg/dL (40-60) 07/28/19 05:05 Cholesterol/HDL Ratio 4.3 (0.0-5.0) 07/28/19 05:05 Amylase 269 Units/L (25-115) H 08/01/19 04:08 Lipase 3214 Units/L (73-393) H 08/01/19 04:08 Urine Acetone Small (NEGATIVE) 07/31/19 05:06 Urine Opiates Screen Positive (NEG=<300) 07/28/19 12:22 Urine Methadone Screen Negative (NEG=<300) 07/28/19 12:22 Ur Barbiturates Screen Negative (NEG=<200) 07/28/19 12:22 Ur Phencyclidine Scrn Negative (NEG=<25) 07/28/19 12:22 Ur Amphetamines Screen Negative (NEG=<1000) 07/28/19 12:22 U Benzodiazepines Scrn Negative (NEG=<200) 07/28/19 12:22 Urine Cocaine Screen Negative (NEG=<300) 07/28/19 12:22 U Marijuana (THC) Screen Negative (NEG=<50) 07/28/19 12:22 Acetone, Semi-Quant Small (NEGATIVE) H 07/28/19 05:05 - Plan (1) Acute pancreatitis Status: Acute Qualifiers: Pancreatitis type: other Acute pancreatitis complication: no infection or necrosis Qualified Code(s): K85.80 - Other acute pancreatitis without necrosis or infection Plan: IV FLUIDS, DILAUDID FOR PAIN CONTROL, ZOFRAN IV PRN, PHENERGAN IM PRN, CONTINUE TO MONITOR (2) Diabetes type 1, uncontrolled Status: Acute Qualifiers: Glycemic state: with hyperglycemia Qualified Code(s): E10.65 - Type 1 diabetes mellitus with hyperglycemia Plan: HUMULIN R SLIDING SCALE, LEVEMIR 15 UNITS SQ BID, MONITOR OTBS ACHS (3) CKD (chronic kidney disease) stage 4, GFR 15-29 ml/min Status: Acute Plan: 1/2 NORMAL SALINE AT 100ML/HR, CONTINUE TO MONITOR (4) Acute hyperkalemia Status: Acute Plan: CONTINUE TO MONITOR (5) Acute hyponatremia Status: Acute Plan: 1/2 NORMAL SALINE AT 100ML/HR, CONTINUE TO MONITOR
[2019-08-01] MEDS: SNACK - Diabetic Appropriate PO SCH (20:57)
[2019-08-01] MEDS: COLACE CAP 100 MG PO SCH (21:14)
[2019-08-01] MEDS: NORVASC TAB 10 MG PO SCH (21:16)
[2019-08-01] MEDS: HYTRIN PO SCH (21:16)
[2019-08-01] MEDS: LIPITOR TAB 40 MG PO SCH (21:16)
[2019-08-01] MEDS: REQUIP PO SCH (21:18)
[2019-08-01] MEDS: HumuLIN R SC PRN (21:18)
[2019-08-01] MEDS: KLONOPIN TAB 0.5 MG PO PRN (21:29)
[2019-08-02] MEDS: NS 1/2 1000 ML IV 1,000 ML IV SCH ×3 (03:16→10:09)
[2019-08-02 04:51] LABS: BASOPHILS # (AUTO) 0.1 X10^3/uL (0.0-0.1); EOSINOPHILS # (AUTO) 0.1 x10^3/uL (0.0-0.2); EOSINOPHILS % (AUTO) 1.8 % (0.9-2.9); HEMATOCRIT 33.7 % (42.0-54.0); HEMOGLOBIN 11.1 g/dL (13.5-18.0); LYMPHOCYTES # (AUTO) 1.2 X10^3/uL (1.3-2.9); LYMPHOCYTES % (AUTO) 17.2 % (21.0-51.0); MEAN CORPUSCULAR HEMOGLOBIN 31.4 pg (27.0-34.0); MEAN CORPUSCULAR HGB CONC 32.8 g/dL (33.0-35.0); MEAN CORPUSCULAR VOLUME 95.6 fL (80.0-100.0); MONOCYTES # (AUTO) 0.7 x10^3/uL (0.3-0.8); MONOCYTES % (AUTO) 10.1 % (0.0-13.0); NEUTROPHILS # (AUTO) 4.8 x10^3/uL (2.2-4.8); NEUTROPHILS % (AUTO) 69.9 % (42.0-75.0); PLATELET COUNT 163 X10^3/uL (150.0-450.0); RED BLOOD COUNT 3.53 X10^6/uL (4.7-6.0); RED CELL DISTRIBUTION WIDTH 13.9 % (11.6-16.5); WHITE BLOOD COUNT 6.9 X10^3/uL (3.6-10.0)
[2019-08-02 05:04] LABS: ALANINE AMINOTRANSFERASE 24 Units/L (12-78); ALBUMIN 2.4 g/dL (3.4-5.0); ALKALINE PHOSPHATASE 119 Units/L (46-116); AMYLASE 210 Units/L (25-115); ASPARTATE AMINO TRANSFERASE 38 Units/L (15-37); BLOOD UREA NITROGEN 17 mg/dL (7-18); CALCIUM 8.4 mg/dL (8.5-10.1); CARBON DIOXIDE 22.8 mmol/L (21-32); CHLORIDE 110 mmol/L (98-107); COR CA(FOR HYPOALB) 9.7 mg/dL (8.5-10.1); COR NA(FOR HYPERGLY) 143 mmol/L (136-145); CREATININE 1.13 mg/dL (0.70-1.30); LIPASE 2677 Units/L (73-393); SODIUM 141 mmol/L (136-145); TOTAL PROTEIN 5.9 g/dL (6.4-8.2); eGFR NON BLACK RACES > 60 (>60)
[2019-08-02] MEDS ORDERED: NS 1/2 1000 ML IV 1,000 ML IV ONE (05:22)
[2019-08-02] MEDS: DILAUDID INJ IVP PRN (05:34)
[2019-08-02] MEDS: ULORIC PO SCH (08:12)
[2019-08-02] MEDS: LOPRESSOR TAB 25 MG PO SCH (08:13)
[2019-08-02] MEDS: LEVEMIR SC SCH (08:13)
[2019-08-02] MEDS: FERROUS GLUCONATE PO SCH (08:13)
[2019-08-02] MEDS: PATIENT'S HOME MEDICATION (Mirabegron [Myrbetriq] 25 MG) PO SCH (08:14)
[2019-08-02] MEDS: MILK OF MAGNESIA PO SCH (08:14)
[2019-08-02 09:24] VITALS: BP 148/88
== END 2019-08-02 11:00 | disposition home or self-care (01) | DRG 439 ==
LOC: ER 14:05 → ICU 18:02
PROVIDERS: ADMIT Internal Medicine; ATTEND Internal Medicine
DX: N18.4 Chronic kidney disease, stage 4 (severe); K57.30 Diverticulosis of large intestine without perforation or abscess without bleeding; E10.65 Type 1 diabetes mellitus with hyperglycemia; E87.5 Hyperkalemia; E78.2 Mixed hyperlipidemia; K85.80 Other acute pancreatitis without necrosis or infection; I25.10 Atherosclerotic heart disease of native coronary artery without angina pectoris; I12.9 Hypertensive chronic kidney disease with stage 1 through stage 4 chronic kidney disease, or unspecified chronic kidney disease; E87.1 Hypo-osmolality and hyponatremia; R79.1 Abnormal coagulation profile
CPT/HCPCS: 36415; 74022; 74176; 80048; 80053; 80061; 80307; 82009; 82150; 82947; 83036; 83690; 85025; 85610; 85730; 90674; 90686; 96365; 96374; 96375; 99284; A4222; G0434; J1170; J1815; J3490; J7030; J7050; J7120